=== PATIENT | male | born 1985 | race Two or more races ===

== ENCOUNTER 2017-08-08 10:42 | Emergency (ER) | payer SELFPAY ==
[~2017-08-08] VITALS: Ht 177.8 cm; Wt 99.8 kg
--- NOTE | 2017-08-08 10:42 | NUR ---
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 PT STATED HE WAS ON HIS WAY TO AN INTERVIEW WHEN STARTED FEELING BAD. PATIENT APPEARS ANXIOUS. +NEURO INTACT. GOWNED AND PLACED ON CONT MONITORING, NO RESP DISTRESS. RR EVEN AND UNLABORED. SKIN IS WARM AND NON DIAPHORETIC.PENDING ER MD EVALUATION
--- NOTE | 2017-08-08 11:10 | NUR ---
Patient is resting comfortably in bed with eyes closed. Easily aroused. VSS
[2017-08-08] MEDS ORDERED: LORAZEPAM 1 MG TABLET ONE (11:11)
[2017-08-08 11:12] LABS: BASOPHILS # (AUTO) 0.1 /CMM (0.0-0.2); BASOPHILS % (AUTO) 0.5 % (0.0-2.0); EOSINOPHILS % (AUTO) 0.3 % (0.0-6.0); HEMATOCRIT 46 % (39-51); HEMOGLOBIN 15.8 g/dL (13.5-17.5); LYMPHOCYTES # (AUTO) 1.1 /CMM (0.8-4.8); LYMPHOCYTES % (AUTO) 10.8 % (20.0-44.0); MEAN CORPUSCULAR HEMOGLOBIN 30 PG (26.0-33.0); MEAN CORPUSCULAR HGB CONC 34 g/dl (31.0-36.0); MEAN CORPUSCULAR VOLUME 89 fL (80-96); MONOCYTES # (AUTO) 0.6 /CMM (0.1-1.30); MONOCYTES % (AUTO) 5.6 % (2.0-12.0); NEUTROPHILS # (AUTO) 8.3 /CMM (1.8-8.9); NEUTROPHILS % (AUTO) 82.8 % (43.0-81.0); PLATELET COUNT (AUTO) 277 /CMM (150-450); RDW COEFFICIENT OF VARIATION 12.6 (11.5-15.0); WHITE BLOOD COUNT (AUTO) 10.1 K/uL (4.3-11.0)
[2017-08-08 11:22] LABS: CALCIUM, SERUM 8.8 mg/dL (8.5-10.1); CARBON DIOXIDE 24 mmol/L (21-32); CHLORIDE 104 mmol/L (98-107); CREATININE 0.9 mg/dL (0.6-1.3); GLUCOSE 104 mg/dL (74-106); POTASSIUM 4.1 mmol/L (3.5-5.1); SODIUM SERUM 140 mmol/L (136-145); UREA NITROGEN, BLOOD 12 mg/dL (7-18)
[2017-08-08] MEDS ORDERED: LORAZEPAM 1 MG TABLET PO ONE (11:30)
[2017-08-08 11:31] LABS: TROPONIN I < 0.017 ng/mL (0.00-0.056)
--- NOTE | 2017-08-08 11:53 | NUR ---
Patient discharged to home in stable condition. Written and verbal after care instructions given. Patient verbalizes understanding of instruction.
[2017-08-08 11:55] VITALS: BP 122/71
== END 2017-08-08 11:56 | disposition home or self-care (01) ==
LOC: ER 10:43
DX: F41.0 Panic disorder [episodic paroxysmal anxiety] (principal); M94.0 Chondrocostal junction syndrome [Tietze]
CPT/HCPCS: 36415; 71010; 80048; 84484; 85025; 93005; 99285; A4606; Z7610

== ENCOUNTER 2024-01-22 18:03 | Emergency (ER) | payer BC ==
[~2024-01-22] VITALS: Ht 177.8 cm; Wt 108.4 kg
[~2024-01-22 18:03] MED LIST: TYL2T PO
[2024-01-22] MEDS ORDERED: ASPIRIN 325 MG TABLET ONE (18:42)
[2024-01-22] MEDS ORDERED: NITROGLYCERIN 0.4 MG/TAB BOTTLE ONE (18:42)
[2024-01-22] MEDS: NITROGLYCERIN 0.4 MG/TAB BOTTLE SL ONE (18:46)
[2024-01-22] MEDS: ASPIRIN 325 MG TABLET PO ONE (18:46)
[2024-01-22 18:47] LABS: BASOPHILS % (AUTO) 0.5 % (0.0-2.0); EOSINOPHILS % (AUTO) 0.2 % (0.0-6.0); HEMATOCRIT 46 % (39-51); HEMOGLOBIN 15.3 g/dL (13.5-17.5); LYMPHOCYTES # (AUTO) 1.5 K/uL (0.8-4.8); LYMPHOCYTES % (AUTO) 16.1 % (20.0-44.0); MEAN CORPUSCULAR HEMOGLOBIN 31 PG (26.0-33.0); MEAN CORPUSCULAR HGB CONC 34 g/dl (31.0-36.0); MEAN CORPUSCULAR VOLUME 93 fL (80-96); MONOCYTES # (AUTO) 0.6 K/uL (0.1-1.30); NEUTROPHILS # (AUTO) 6.9 K/uL (1.8-8.9); NEUTROPHILS % (AUTO) 76.2 % (43.0-81.0); PLATELET COUNT (AUTO) 257 K/uL (150-450); RED BLOOD CELL COUNT(AUTO) 4.91 MIL/uL (4.5-6.0); RED CELL DISTRIBUTION WIDTH 14.3 % (11.5-15.0)
[2024-01-22 18:58] VITALS: TEMP 98.4
[2024-01-22 19:16] LABS: CALCIUM, SERUM 8.3 mg/dL (8.5-10.1); CARBON DIOXIDE 23 mmol/L (21-32); CHLORIDE 103 mmol/L (98-107); GLUCOSE 168 mg/dL (74-106); POTASSIUM 3.8 mmol/L (3.5-5.1); SODIUM SERUM 139 mmol/L (136-145); UREA NITROGEN, BLOOD 8 mg/dL (7-18)
[2024-01-22 20:06] LABS: NT-PRO BNP 3 pg/mL (0-125)
[2024-01-22] MEDS ORDERED: MORPHINE SULFATE INJ 4 MG/ML DISP.SYRIN ONE (20:32)
[2024-01-22] MEDS ORDERED: KETOROLAC TROMETHAMINE 15 MG/ML VIAL ONE (20:32)
[2024-01-22] MEDS: KETOROLAC TROMETHAMINE 15 MG/ML VIAL IV ONE (20:50)
[2024-01-22] MEDS: MORPHINE SULFATE INJ 2 MG/ML DISP.SYRIN IV ONE (20:50)
[2024-01-22] MEDS ORDERED: LORAZEPAM INJ 2 MG/ML VIAL ONE (21:29)
[2024-01-22] MEDS: LORAZEPAM INJ 2 MG/ML VIAL IV ONE (21:40)
[2024-01-22] MEDS ORDERED: LORA-259 PO (22:29)
[2024-01-22] MEDS ORDERED: KETO10TA2 PO (22:29)
[2024-01-22 22:34] VITALS: BP 128/88; O2SAT 97
== END 2024-01-22 22:35 | disposition home or self-care (01) ==
LOC: ER 18:03
DX: R07.89 Other chest pain (principal); F41.0 Panic disorder [episodic paroxysmal anxiety]; Z79.899 Other long term (current) drug therapy
CPT/HCPCS: 99285; 96374; 96375; 71045; 93005; 85025; 80048; 36415; 84484; 83880; J2060; J2270; J1885

== ENCOUNTER 2024-09-20 16:58 | Emergency (ER) | payer SELFPAY ==
[~2024-09-20] VITALS: Ht 177.8 cm; Wt 108.9 kg
[~2024-09-20 16:58] MED LIST changes: +KETO10TA2 PO; +LORA-259 PO
[2024-09-20 20:40] LABS: BASOPHILS # (AUTO) 0.1 K/uL (0.0-0.2); BASOPHILS % (AUTO) 0.6 % (0.0-2.0); EOSINOPHILS % (AUTO) 0.2 % (0.0-6.0); HEMATOCRIT 47 % (39-51); HEMOGLOBIN 15.6 g/dL (13.5-17.5); LYMPHOCYTES # (AUTO) 2.5 K/uL (0.8-4.8); LYMPHOCYTES % (AUTO) 27.7 % (20.0-44.0); MEAN CORPUSCULAR HEMOGLOBIN 31 PG (26.0-33.0); MEAN CORPUSCULAR HGB CONC 33 g/dl (31.0-36.0); MEAN CORPUSCULAR VOLUME 94 fL (80-96); MONOCYTES % (AUTO) 10.8 % (2.0-12.0); NEUTROPHILS # (AUTO) 5.4 K/uL (1.8-8.9); NEUTROPHILS % (AUTO) 60.7 % (43.0-81.0); PLATELET COUNT (AUTO) 253 K/uL (150-450); RED BLOOD CELL COUNT(AUTO) 4.98 MIL/uL (4.5-6.0); RED CELL DISTRIBUTION WIDTH 14.1 % (11.5-15.0); WHITE BLOOD COUNT (AUTO) 8.9 K/uL (4.3-11.0)
[2024-09-20 20:51] LABS: CREATININE 0.9 mg/dL (0.6-1.3)
[2024-09-20] MEDS ORDERED: HYDR-500 PO (22:18)
[2024-09-20] MEDS ORDERED: hydrOXYzine 10 MG TABLET ONE (22:36)
[2024-09-20] MEDS: hydrOXYzine 10 MG TABLET PO ONE (22:41)
[2024-09-20 22:42] VITALS: BP 127/74; TEMP 98.1; O2SAT 98
== END 2024-09-20 22:47 | disposition home or self-care (01) ==
LOC: ER 17:04
DX: F41.0 Panic disorder [episodic paroxysmal anxiety] (principal); M94.0 Chondrocostal junction syndrome [Tietze]
CPT/HCPCS: 99285; 71045; 93005; 85025; 80048; 36415; 84484; Q0177

== ENCOUNTER 2024-10-17 15:31 | Emergency (ER) | payer OTHER ==
[~2024-10-17] VITALS: Ht 177.8 cm; Wt 108.9 kg
[~2024-10-17 15:31] MED LIST changes: +HYDR-500 PO
[2024-10-17] MEDS ORDERED: KETOROLAC TROMETHAMINE INJ 30 MG/ML VIAL ONE (17:03)
[2024-10-17] MEDS ORDERED: ONDANSETRON HCL/PF 4 MG/2 ML VIAL ONE (17:03)
[2024-10-17] MEDS: ONDANSETRON HCL/PF 4 MG/2 ML VIAL IVP ONE (17:20)
[2024-10-17 17:22] LABS: BASOPHILS % (AUTO) 0.4 % (0.0-2.0); EOSINOPHILS # (AUTO) 0.1 K/uL (0.0-0.7); EOSINOPHILS % (AUTO) 0.6 % (0.0-6.0); HEMATOCRIT 47 % (39-51); HEMOGLOBIN 16.4 g/dL (13.5-17.5); LYMPHOCYTES # (AUTO) 2.2 K/uL (0.8-4.8); LYMPHOCYTES % (AUTO) 25.8 % (20.0-44.0); MEAN CORPUSCULAR HEMOGLOBIN 32 PG (26.0-33.0); MEAN CORPUSCULAR HGB CONC 35 g/dl (31.0-36.0); MEAN CORPUSCULAR VOLUME 93 fL (80-96); MONOCYTES % (AUTO) 12.2 % (2.0-12.0); NEUTROPHILS # (AUTO) 5.1 K/uL (1.8-8.9); PLATELET COUNT (AUTO) 254 K/uL (150-450); RED BLOOD CELL COUNT(AUTO) 5.09 MIL/uL (4.5-6.0); RED CELL DISTRIBUTION WIDTH 13.8 % (11.5-15.0); WHITE BLOOD COUNT (AUTO) 8.4 K/uL (4.3-11.0)
[2024-10-17] MEDS: IV NS 0.9% 1,000 ML BAG IV ONE (17:25)
[2024-10-17] MEDS: KETOROLAC TROMETHAMINE 15 MG/ML VIAL IV ONE (17:25)
[2024-10-17 17:31] LABS: CALCIUM, SERUM 9.2 mg/dL (8.5-10.1); CREATININE 0.9 mg/dL (0.6-1.3); POTASSIUM 4.1 mmol/L (3.5-5.1)
[2024-10-17 17:36] LABS: ALBUMIN 4.4 g/dL (3.4-5.0); BILIRUBIN,DIRECT 0.1 mg/dL (0.0-0.2); BILIRUBIN,TOTAL 0.3 mg/dL (0.2-1.0); TOTAL PROTEIN, SERUM 8.2 g/dL (6.4-8.2)
[2024-10-17 18:24] LABS: APPEARANCE,URINE CLEAR (CLEAR); BILIRUBIN,URINE 1+ (NEGATIVE); BLOOD, URINE TRACE-INTA Ery/uL (NEGATIVE); COLOR,URINE YELLOW (YELLOW); KETONES,URINE TRACE mg/dL (NEGATIVE); LEUKOCYTE ESTERASE ,URINE NEGATIVE (NEGATIVE); NITRITE, URINE NEGATIVE (NEGATIVE); PH,URINE 6.5 (5.0-8.0); PROTEIN,URINE TRACE mg/dl (NEGATIVE); UGLUCOSE NEGATIVE (NEGATIVE)
[2024-10-17 18:32] LABS: ADD URINE CULTURE NO; BACTERIA,URINE Few /HPF (None Seen); CALCIUM OXALATE CRYSTALS,UR Rare /HPF (None Seen); SQUAMOUS EPITHELIAL CELL,UR Rare /HPF (None Seen); WBC,URINE 0-2 /HPF (0-3)
[2024-10-17 20:05] VITALS: BP 124/78; TEMP 98.5; O2SAT 99
== END 2024-10-17 20:05 | disposition home or self-care (01) ==
LOC: ER 15:38
DX: N23 Unspecified renal colic (principal)
CPT/HCPCS: 99285; 74176; 96374; 96361; 96375; 85025; 80048; 83690; 80076; 81001; 36415; J1885; J2405; J7030

== ENCOUNTER 2024-11-12 15:28 | Emergency (ER) | payer OTHER ==
[~2024-11-12] VITALS: Ht 177.8 cm; Wt 108.9 kg
[2024-11-12] MEDS ORDERED: ASPIRIN EC 325 MG TABLET.DR PO ONE (15:49)
[2024-11-12] MEDS ORDERED: MAG HYDROX/AL HYDROX/SIMETH 30 ML UDC ONE (15:49)
[2024-11-12] MEDS: ASPIRIN EC 325 MG TABLET.DR PO ONE (16:00)
[2024-11-12 16:26] LABS: HEMATOCRIT 47 % (39-51); HEMOGLOBIN 15.4 g/dL (13.5-17.5); MEAN CORPUSCULAR HEMOGLOBIN 31 PG (26.0-33.0); MEAN CORPUSCULAR HGB CONC 33 g/dl (31.0-36.0); MEAN CORPUSCULAR VOLUME 93 fL (80-96); RED BLOOD CELL COUNT(AUTO) 5.01 MIL/uL (4.5-6.0)
[2024-11-12 16:27] LABS: BASOPHILS % (AUTO) 0.4 % (0.0-2.0); EOSINOPHILS % (AUTO) 0.5 % (0.0-6.0); LYMPHOCYTES # (AUTO) 1.6 K/uL (0.8-4.8); LYMPHOCYTES % (AUTO) 19.7 % (20.0-44.0); MONOCYTES # (AUTO) 0.7 K/uL (0.1-1.30); MONOCYTES % (AUTO) 8.5 % (2.0-12.0); NEUTROPHILS # (AUTO) 5.7 K/uL (1.8-8.9); NEUTROPHILS % (AUTO) 70.9 % (43.0-81.0); PLATELET COUNT (AUTO) 240 K/uL (150-450); RED CELL DISTRIBUTION WIDTH 13.7 % (11.5-15.0)
[2024-11-12 16:32] LABS: CALCIUM, SERUM 8.6 mg/dL (8.5-10.1); CARBON DIOXIDE 27 mmol/L (21-32); CHLORIDE 106 mmol/L (98-107); CREATININE 0.8 mg/dL (0.6-1.3); GLUCOSE 96 mg/dL (74-106); POTASSIUM 3.8 mmol/L (3.5-5.1); SODIUM SERUM 141 mmol/L (136-145); UREA NITROGEN, BLOOD 8 mg/dL (7-18)
[2024-11-12] MEDS: MAG HYDROX/AL HYDROX/SIMETH 30 ML UDC PO ONE (16:39)
[2024-11-12 16:47] LABS: APPEARANCE,URINE CLEAR (CLEAR); BILIRUBIN,URINE NEGATIVE (NEGATIVE); BLOOD, URINE 1+ Ery/uL (NEGATIVE); COLOR,URINE YELLOW (YELLOW); KETONES,URINE 1+ mg/dL (NEGATIVE); LEUKOCYTE ESTERASE ,URINE NEGATIVE (NEGATIVE); NITRITE, URINE NEGATIVE (NEGATIVE); PH,URINE 6.5 (5.0-8.0); PROTEIN,URINE NEGATIVE (NEGATIVE); UGLUCOSE NEGATIVE (NEGATIVE); UROBILINOGEN,URINE 0.2 EU/dL (0.2)
[2024-11-12 17:05] LABS: BACTERIA,URINE Rare /HPF (None Seen); MUCUS,URINE Moderate /LPF (None Seen)
[2024-11-12 17:08] LABS: ADD URINE CULTURE NO; SPERM,URINE Rare /HPF (None Seen); SQUAMOUS EPITHELIAL CELL,UR None Seen /HPF (None Seen); WBC,URINE 0-2 /HPF (0-3)
[2024-11-12 17:09] LABS: RBC,URINE 0-2 /HPF (0-2)
[2024-11-12] MEDS ORDERED: IBUP-1490 PO (21:09)
[2024-11-12 21:19] VITALS: BP 133/67; TEMP 97.4; O2SAT 98
== END 2024-11-12 21:28 | disposition home or self-care (01) ==
LOC: ER 15:30
DX: R07.89 Other chest pain (principal); R10.9 Unspecified abdominal pain
CPT/HCPCS: 36415; 71045-TC; 80048-TC; 81001; 83690-TC; 84484-TC; 85025-TC

== ENCOUNTER 2025-05-27 17:16 | Emergency (ER) | payer OTHER ==
[~2025-05-27] VITALS: Ht 177.8 cm; Wt 108.9 kg
[~2025-05-27 17:16] MED LIST changes: +IBUP-1490 PO
[2025-05-27] MEDS ORDERED: ASPIRIN 325 MG TABLET PO ONE (18:00)
[2025-05-27 18:03] LABS: PLATELET COUNT (AUTO) 233 K/uL (150-450); RED BLOOD CELL COUNT(AUTO) 4.85 MIL/uL (4.5-6.0); RED CELL DISTRIBUTION WIDTH 14.1 % (11.5-15.0); WHITE BLOOD COUNT (AUTO) 8.1 K/uL (4.3-11.0)
[2025-05-27 18:09] LABS: CALCIUM, SERUM 8.4 mg/dL (8.5-10.1); CREATININE 1.1 mg/dL (0.6-1.3); SODIUM SERUM 143 mmol/L (136-145); UREA NITROGEN, BLOOD 10 mg/dL (7-18)
[2025-05-27 18:22] LABS: NT-PRO BNP 13 pg/mL (0-125)
[2025-05-27] MEDS ORDERED: dexaMETHasone SOD PHOSPHATE 1 ML ONE (18:27)
[2025-05-27] MEDS ORDERED: PROCHLORPERAZINE EDISYLATE 10 MG/2 ML VIAL ONE (18:27)
[2025-05-27] MEDS ORDERED: KETOROLAC TROMETHAMINE INJ 30 MG/ML VIAL ONE (18:28)
[2025-05-27] MEDS: IV NS 0.9% 1,000 ML BAG IV ONE ×2 (18:44→19:09)
[2025-05-27] MEDS: KETOROLAC TROMETHAMINE INJ 30 MG/ML VIAL IV ONE (18:45)
[2025-05-27] MEDS: PROCHLORPERAZINE EDISYLATE 10 MG/2 ML VIAL IVP ONE (18:46)
[2025-05-27] MEDS: dexaMETHasone SOD PHOSPHATE 10 MG/ML VIAL IV ONE (18:47)
[2025-05-27] MEDS ORDERED: SUMATRIPTAN SUCCINATE 6 MG/0.5 ML VIAL SQ ONE (19:30)
[2025-05-27] MEDS: SUMATRIPTAN SUCCINATE 6 MG/0.5 ML VIAL SQ ONE (19:31)
[2025-05-27] MEDS ORDERED: LORAZEPAM INJ 2 MG/ML VIAL ONE (20:21)
[2025-05-27] MEDS: LORAZEPAM INJ 2 MG/ML VIAL IV ONE (20:31)
[2025-05-27] MEDS ORDERED: ALPR0.5T PO (21:27)
[2025-05-27 21:42] VITALS: BP 137/89; TEMP 98.3; O2SAT 97
== END 2025-05-27 21:42 | disposition home or self-care (01) ==
LOC: ER 17:19
DX: R07.89 Other chest pain (principal); R51.9 Headache, unspecified; R53.1 Weakness; F41.9 Anxiety disorder, unspecified; R06.02 Shortness of breath; Z20.822 Contact with and (suspected) exposure to COVID-19
CPT/HCPCS: 99285; 96374; 96375; 70450; 71045; 96361; 87426; 93005; 85025; 80048; 36415; 84484 ×2; 83880; 96372; J1885; J2060; J0780; J1100; J1200; J3030; J7030 ×2

== ENCOUNTER 2025-08-29 17:09 | Emergency (ER) | payer OTHER ==
[~2025-08-29] VITALS: Ht 177.8 cm; Wt 104.3 kg
[~2025-08-29 17:09] MED LIST changes: +ALPR0.5T PO
[2025-08-29 17:16] VITALS: TEMP 98.3
[2025-08-29 19:19] LABS: PLATELET COUNT (AUTO) 240 K/uL (150-450); RED BLOOD CELL COUNT(AUTO) 5.03 MIL/uL (4.5-6.0); RED CELL DISTRIBUTION WIDTH 14.2 % (11.5-15.0); WHITE BLOOD COUNT (AUTO) 8.9 K/uL (4.3-11.0)
[2025-08-29 19:26] LABS: CALCIUM, SERUM 8.7 mg/dL (8.5-10.1); CREATININE 1.0 mg/dL (0.6-1.3); SODIUM SERUM 140 mmol/L (136-145); UREA NITROGEN, BLOOD 11 mg/dL (7-18)
[2025-08-29 22:05] VITALS: BP 125/85; O2SAT 97
== END 2025-08-29 22:00 | disposition home or self-care (01) ==
LOC: ER 17:17
DX: R07.89 Other chest pain (principal); F41.9 Anxiety disorder, unspecified
CPT/HCPCS: 36415; 71045-TC; 80048-TC; 84484-TC; 85025-TC